=== PATIENT | female | born 1990 | race Caucasian/White ===

== ENCOUNTER → 2021-03-05 03:20 | Outpatient (CLI) | payer BC, SELFPAY ==
[2021-03-06 04:01] LABS: SARS-CoV-2 RNA PCR Negative
== END ==
PROVIDERS: Visit Provider Orthopaedic Surgery
DX: Z01.812 Encounter for preprocedural laboratory examination (principal); Z20.822 Contact with and (suspected) exposure to COVID-19
CPT/HCPCS: C9803; U0003; U0005

== ENCOUNTER 2021-03-08 02:42 | Day surgery (SDC) | payer BC, SELFPAY ==
[2021-03-04 09:35] VITALS: BMI 22.8
[2021-03-08] VITALS (11 sets, daily range): BP systolic 105–132; BP diastolic 56–92; PULSE 62–90; RESP 14–18; TEMP 35.9–36.3; O2SAT 96–100
--- NOTE | ~2021-03-08 | XR_ITS ---
EXAMINATION: XR surgery orthopedic DATE: 03/08/2021 09:59 INDICATION: Left wrist ORIF TECHNIQUE: 2 fluoroscopic images of the mid left forearm were obtained during procedure performed by Dr. Brooke. Radiologist was not present for the imaging or procedure. The amount of fluoroscopy time us ed during this procedure was 0.1 minutes. COMPARISON: 03/03/2021 FINDINGS: Bipolar open reduction and internal plate and screw fixation of an oblique fracture of the proximal left ulnar diaphysis. Alignment appears essentially anatomic. No other fractures visualized bones. IMPRESSION: 1. Essentially anatomic alignment post screw fixation of the proximal left ulnar diaphyseal fracture. Reviewed, dictated and finalized at location A. IMPRESSION: 1. Essentially anatomic alignment post screw fixation of the proximal left ulna r diaphyseal fracture.
--- NOTE | 2021-03-08 07:14 | WPDHPUPDATE1 ---
History and Physical Update Update Date/Time: 03/08/21 07:15 History and Physical has been reviewed, including an updated exam of the patient. There are NO changes in the patient's condition. Risks, benefits, and alternatives have been discussed and questions answered. Patient agrees to proceed with procedure.
--- NOTE | 2021-03-08 07:33 | WPDANESEPPF ---
Anes - Initial Pre Proc Eval Procedure: Operation Date: 03/08/21 08:30 Proposed Procedures p Open Reduction Internal Fixation Left Ulna - Aaron Brooke MD Date/Time: 03/08/21 07:33 Surgeon: Aaron Brooke MD Pre Op Diagnosis: left ulna fx Patient Data Age: 30 Gender: F Height: 1.6 m Weight: 58.51 kg Allergies Allergy/AdvReac Type Severity Reaction Status Date / Time cetirizine [From Zyrte] Allergy Intermediate Swelling Verified 03/04/21 09:31 Home Medications Medication Instructions Recorded Confirmed Type sertraline 50 mg tablet 50 mg PO DAILY tablet 02/23/21 03/04/21 History acetaminophen [Tylenol Arthritis] 650 mg PO Q8H PRN 03/04/21 03/04/21 History Patient hx anesthesia problems: none Family hx anesthesia problems: none [facility] Past Medical History Medical History (Updated 03/08/21 @ 07:34 by Too Rivera MD) Anxiety Depression Fracture of shaft of left ulna Social History Social History Years smoked: 10 Smoking status: Current some day smoker Tobacco type: cigarettes Second hand tobacco smoke exposure: No Alcohol intake: never Substance use: current Substance use type: marijuana Other substance usage details: occasionally Last use: 03-02-21 Living arrangements: with family Gender identity (if verbalized by the patient): Female Spiritual care concerns: No Anes - Eval Final PreProcedure Day of Procedure 03/08/21 07:33 Patient weight: normal Heart: regular rate and rhythm Lungs: clear to auscultation and normal air movement Airway: Mallampati scale class II Neurological: alert and oriented Last oral intake: >/= 8 hours ASA classification: II Emergent: no Anesthetic plan: proceed Anesthesia type and monitoring: general LMA Informed Consent: The patient's anesthetic plan and its attendant risks and benefits were discussed with the patient/family/POA. Questions were solicited and answers provided to the satisfaction of the patient/family/POA.
[2021-03-08] MEDS: LACTATED RINGERS 1,000 ML 30 ML IV CONT ×2 (07:40→10:15)
[2021-03-08] MEDS: ACETAMINOPHEN 500 MG TABLET 1000 MG PO (07:42)
[2021-03-08] MEDS: KETOROLAC 15 MG/ML VIAL (*BKC) IV PUSH (07:42)
[2021-03-08] MEDS: ceFAZolin 2 GM/D5W 50 ML 2 GM/50 ML BAG IVPB (08:32)
[2021-03-08] MEDS: BUPIVACAINE/EPINEPHRINE 0.5% 50 ML VIAL (09:09)
--- NOTE | 2021-03-08 10:25 | W.PM.PROC2 ---
Procedure Note - Detailed Date of Procedure 03/08/21 Pre-op Diagnosis left ulna shaft fx Post-op Diagnosis same Procedure Performed ORIF left ulnar shaft fracture Surgeon Aaron Brooke MD Supervisory Investigative Specialist Hannah Pantoja Anesthesia general Indications see preoperative H&P Description of Procedure patient was identified and proper side identified. She was taken to the operating room and transferred to the or table placing her supine taking care to pad her torso and extremities. After general anesthetic induction and intubation, a nonsterile tourniquet was placed high in the left arm. The left upper extremity was then prepped and draped in usual sterile fashion. Extremities exsanguinated and tourniquet was inflated to 200 mmHg remaining up for about 54 minutes. Longitudinal incision was made over the crest of the ulna. Subcutaneous tissue sharply dissected down to the forearm fascia. This was incised between the FCU and ECU muscles. The muscles were elevated off of the ulna centered at the fracture site. An attempt was made after reducing the fracture to secure with a lag screw but this was unsuccessful in keeping the fracture line properly so it was held with a clamp while a plate was applied. A six hole 3.5 LCDC plate was contoured to fit the ulna at that point and then secured with four 0.5 locking screws, two proximal and two distal to the fracture site. This gave an anatomic reduction with excellent fixation of the hardware. The position was assessed fluoroscopically during the procedure. The wound was irrigated with sterile saline solution. Some of the fracture callus that had been removed for visualization was morselized and then placed into a defect for small butterfly fragment had been. The forearm fascia was reapproximated loosely with 0 Vicryl running stitch in the trigger was released. Subcutaneous tissue was reapproximated with a 2-0 Stratafix subcuticular stitch and lisette for the skin. Xeroform sterile dressing were applied. A well-padded ulnar gutter type splint was fashioned. She tolerated the procedure well. She was awakened, extubated taken to recovery in stable condition. There were no known intraoperative complications. Estimated blood loss about 10 mL. She received perioperative antibiotics. Estimated Blood Loss -10.0 Tourniquet Time 54 Drains No Packing No Pathology none sent Complications No immediate complications Condition stable Disposition PACU
[2021-03-08] MEDS: fentaNYL CITRATE INJ (*CRX) 100 MCG/2 ML VIAL 25 MCG IV PUSH ×4 (11:26→11:55)
[2021-03-08] MEDS: oxyCODONE/ACETAMINOPHEN (*CRX) 5-325 MG TABLET 1 TABLET PO (12:40)
--- NOTE | 2021-03-08 13:01 | SUR.PHASEII ---
1255 pt was discharged home with peripheral iv still in, notified patient and she was aware of this and was okay to remove iv when they arrive home. patient directed to hold pressure and place a pressure dressing on. Estee Akhtar, pacu manager [employer] notified right away of this occurrence.
== END 2021-03-08 12:50 | disposition home or self-care (01) ==
PROVIDERS: Visit Provider Orthopaedic Surgery
PROC: (CPT 25575; principal; 2021-03-08 08:30)
DX: S52.232A Displaced oblique fracture of shaft of left ulna, initial encounter for closed fracture (principal); F17.210 Nicotine dependence, cigarettes, uncomplicated; F41.8 Other specified anxiety disorders; X58.XXXA Exposure to other specified factors, initial encounter
CPT/HCPCS: 25545; A4565; A9270; C1713; J0690; J1100; J1885; J2250; J2405; J2704; J3010; J7120

== ENCOUNTER 2021-04-05 09:59 | Outpatient (RCR) | payer BC, SELFPAY ==
--- NOTE | 2021-04-05 11:53 | OTOPEVAL ---
OCCUPATIONAL THERAPY INITIAL EVALUATION: 04/05/2021 Thank you for referring Susan Alamo to [facility] The patient is scheduled to be seen for therapy?follow-up appointment on 04/22/2021. Please review, sign, date and return this plan of care LEON. I agree with and certify that the following plan of care is medically necessary. Referring Physician Date Attending Provider: Aaron Brooke MD *OT Outpatient Evaluation Start: 04/05/21 09:20 Freq: Status: Active Protocol: Document 04/05/21 10:03 KJL (Rec: 04/05/21 11:52 KJL [id number]) Therapy Assessment Status Assessment Status Assessment Status Evaluation Outpatient Past Medical History Neurological History Hx Neurological Disorders No Significant History Cardiovascular History Hx Cardiac Disorders No Significant History Respiratory History Hx Respiratory Disorders No Significant History Gastrointestinal History Hx Gastrointestinal Disorders No Significant History Genitourinary History Hx Genitourinary Disorders No Significant History Musculoskeletal History Hx Fractures Yes: left ulna Hematological History Hx Hematological Disorders No Significant History Endocrine History Hx Endocrine Disorders No Significant History HEENT History Hx HEENT Disorders No Significant History Integumentary History Hx Skin Disorders No Significant History Reproductive History Hx Hysterectomy Yes: September 2020 Hx Tubal Ligation Yes Psychosocial History Hx Anxiety Yes Hx Depression Yes Pain History History of Any Previous or Ongoing No Significant History Instance of Pain Anesthesia History Hx Anesthesia Reactions No Significant History Evaluation Information Problem Diagnosis ulnar shaft fracture Cause fall Additional Evaluation Detail Patient had a fall resulting in a ulnar shaft fracture end of January or beginning of february, with a ORIF completed on March 08, 2021. Patient presents to outpatient today for fabrication of ulnar gutter splint for L UE. Subjective Information Patient reports had a splint Query Text:As Reported By Patient/ from doctor but threw it away Family because it was dirty. Patient reports has 5 children and is difficult to not maintain no lifting precaution due to having small children. Patient reports soreness in arm,
--- NOTE | 2021-04-22 10:29 | PCOTNOTE ---
Patient did not show up for scheduled appointment this date. In EMR, patient scheduled a MD appt at the same time.
--- NOTE | 2021-04-27 11:13 | PCOTNOTE ---
OCCUPATIONAL THERAPY DISCHARGE NOTIFICATION 04/27/21 Patient:Susan Alamo Date of :1990 Susan was initially seen on 04/05/21 for splint fabrication and no follow up visits were scheduled as the order was for splint only. Followed up with Dr. Brooke's office today and was informed that no further therapy visits are indicated at this time. Thank you for referring this patient to [facility]. Please review, sign, date and return this discharge summary LEON. I have been updated about the patient's current status and I agree with discharge from the above service at this time. Referring Physician Date Referring Provider: Aaron Brooke MD
== END 2021-04-27 15:33 | disposition home or self-care (01) ==
LOC: ANHOT 09:59
PROVIDERS: Visit Provider Orthopaedic Surgery
DX: S52.232D Displaced oblique fracture of shaft of left ulna, subsequent encounter for closed fracture with routine healing (principal)
CPT/HCPCS: 97165; 97760; L3905

== ENCOUNTER 2021-05-18 08:00 | Outpatient (CLI) | payer BC, SELFPAY ==
--- NOTE | ~2021-05-18 | US_ITS ---
EXAMINATION: US venous doppler UE EXAM DATE: 05/18/2021 09:07 INDICATION: M79.602 - Pain in left arm TECHNIQUE: Multiple grayscale, color flow, Doppler sonographic images of the left upper extremity vei ns obtained by technologist. Compression was performed where able. There is no prior study for chase pepe. FINDINGS: Left upper extremity: Jugular vein: ------------> Normal. Subclavian vein: --------> Normal. Axillary vein:------------> Normal. Brachial vein:-----------> Normal. Basilic vein: ------------> Normal. Cephalic vein: ----------> Normal. Radial vein: ------------> Normal. Ulnar vein: > Normal. IMPRESSION: No deep venous thrombosis of the left upper extremity. Reviewed, dictated and finalized at location B.
== END 2021-05-18 08:01 | disposition home or self-care (01) ==
LOC: ANHIMG 08:08
PROVIDERS: Visit Provider Orthopaedic Surgery
DX: M79.602 Pain in left arm (principal); M79.89 Other specified soft tissue disorders
CPT/HCPCS: 93971